=== PATIENT | female | born 1970 ===

== ENCOUNTER 2018-08-06 02:10 | Observation (INO) | payer SELFPAY ==
[2018-08-06] MEDS ORDERED: DiphenhydrAMINE 50 mg/ml Inj IV STA (02:33)
--- NOTE | 2018-08-06 02:39 | ED PDOC ---
HPI: Allergic Reaction Time Seen by Provider: 08/06/18 02:21 Chief Complaint (Nursing): Allergic Reaction Chief Complaint (Provider): allergic reaction History Per: Patient History/Exam Limitations: no limitations Onset/Duration Of Symptoms: Hrs (14) Current Symptoms Are (Timing): Still Present Possible Cause: JACQUIE Inhibitor Home/EMS Treatment: Benadryl Additional Complaint(s): 47 y/o female presents for evaluation of possible allergic reaction x 14 hours. Patient states around 10:00 yesterday morning she noticed mild swelling to upper lip, which got progressively more swollen throughout the day. Patient states she took a Benadryl at 22:30 then went to bed and woke up an hour ago and noticed swelling worsened, and spread up to cheeks and nasal bridge. Patient denies fever, facial pain, difficulty speaking/swallowing, rash, cough, chest pain, shortness of breath, palpitations, abdominal pain, vomiting/diarrhea. Patient states only possible allergen could be waffles she ate for breakfast. Patient also on JACQUIE inhibitor PMD: Dr. De Luna Past Medical History Reviewed: Historical Data, Nursing Documentation, Vital Signs Vital Signs: Last Vital Signs Temp 97.8 F 08/06/18 02:20 Pulse 85 08/06/18 02:20 Resp 17 08/06/18 02:20 BP 149/72 08/06/18 02:20 Pulse Ox 99 08/06/18 02:20 Primary Care Provider: Non [facility] Provider, - Medical History PMH: No Chronic Diseases - Surgical History Other surgeries: liposuction - Family History Family History: States: No Known Family Hx - Living Arrangements Living Arrangements: With Family - Immunization History Hx Tetanus Toxoid Vaccination: No Hx Influenza Vaccination: Yes Hx Pneumococcal Vaccination: No - Home Medications Home Medications: Ambulatory Orders Medication Instructions Recorded Cyclobenzaprine [Flexeril] 10 mg PO HS 07/23/14 Ibuprofen 800 mg PO BID 07/23/14 - Allergies Allergies/Adverse Reactions: Allergies Allergy/AdvReac Type Severity Reaction Status Date / Time No Known Allergies Allergy Verified 08/06/18 02:22 Review of Systems ROS Statement: Except As Marked, All Systems Reviewed And Found Negative Skin: Positive for: Other (swelling) Physical Exam - Reviewed Nursing Documentation Reviewed: Yes Vital Signs Reviewed: Yes - Physical Exam Appears: Positive for: Well, Non-toxic, No Acute Distress Head Exam: Positive for: ATRAUMATIC, NORMAL INSPECTION, NORMOCEPHALIC Skin: Positive for: Normal Color (moderate edema noted to lips, extending upward to inferior orbits, nasal bridge; no erythema, tenderness noted) Eye Exam: Positive for: EOMI, PERRL, Periorbital swelling (infraorbital, bilateral) Cardiovascular/Chest: Positive for: Regular Rate, Rhythm Respiratory: Positive for: Normal Breath Sounds Gastrointestinal/Abdominal: Positive for: Normal Exam Back: Positive for: Normal Inspection Extremity: Positive for: Normal ROM Neurological/Psych: Positive for: Awake, Alert, Oriented (x3) - Laboratory Results Result Diagrams: 08/06/18 03:10 08/06/18 03:10 - ECG O2 Sat by Pulse Oximetry: 99 - Progress ED Course And Treament: -cbc -cmp -IV solumedrol -IV pepcid -IV benadryl 5:00 No improvement of swelling Case discussed with Dr. Licona, hospitalist on-call, for admission for observation Disposition - Clinical Impression Clinical Impression: Angioedema - Patient ED Disposition Is Patient to be Admitted: Yes - Disposition Disposition Time: 04:57 Condition: FAIR
[2018-08-06] MEDS ORDERED: DiphenhydrAMINE 50 mg/ml Inj ONE (02:51)
[2018-08-06 03:23] LABS: BASO % 0.8 % (0.0-2.0); EOS # 0.2 K/uL (0.0-0.7); HEMOGLOBIN 13.1 g/dL (12.0-16.0); LYMPH % 38.5 % (20.0-40.0); MEAN CELL VOLUME 96.6 fl (81.0-99.0); MEAN CORPUSCULAR HEMOGLOBIN 32.9 pg (27.0-31.0); MEAN PLATELET VOLUME 8.2 fl (7.2-11.7); MONO # 0.6 K/uL (0.0-0.8); MONO % 11.3 % (0.0-10.0); NEUT # 2.4 K/uL (1.8-7.0); NEUT % 45.4 % (50.0-75.0); NRBC % 0.2 % (0.0-0.0); RBC 3.97 Mil/uL (3.80-5.20); RED CELL DISTRIBUTION WIDTH 13.5 % (11.5-14.5); WHITE BLOOD COUNT 5.3 K/uL (4.8-10.8)
[2018-08-06 03:30] LABS: ALB/GLOB RATIO 1.4 (1.0-2.1); ALT/SGPT 31 U/L (9-52); AST/SGOT 32 U/L (14-36); BLOOD UREA NITROGEN 16 mg/dl (7-17); CALCIUM 9.1 mg/dL (8.4-10.2); GFR NON-AFRICAN AMERICAN > 60
--- NOTE | 2018-08-06 05:52 | CP.PCM.HP ---
<Julián Abreu - Last Filed: 08/06/18 06:01> History of Present Illness - History of Present Illness History of Present Illness: 47 yo F with pmhx of HTN presents with facial swelling. Pt states approximately 17 hrs prior, she noticed R sided of her upper lip with swelling, which slowly progressed to Left and then maxillary region. 12 hrs after, she took 2 tabs of benadryl, woke up to swelling that progressed periorbitally. Denies SOB, dysphagia, sensation of throat closure, new makeup, new facial products, recent travel, bug bites to face,new foods, cough, sob, n/v. Shes had similar symptoms 8 months ago when started on lisinopril; treated with OTC remedies like benadryl and honey. Pt states symptoms would resolve in 4 days, however, this instance was sustained/worsened. Pt had recent allergy test that showed no specific allergies. she reports allergy to animal dander, however, last contact was 3+ yrs ago. Dr. De Luna pmhx: htn surg: liposuction soc: social etoh; denies: smoking and illicit drugs. lives with Famh: dm/htn meds: reconciled NK (prior) DA Present on Admission - Present on Admission Any Indicators Present on Admission: No History of Uncontrolled Diabetes: No Urinary Catheter: No Review of Systems - Constitutional Constitutional: As Per HPI - EENT Nose/Mouth/Throat: Lip Swelling. absent: Dysphagia, Sore Throat, Throat Swelling, Tongue Swelling - Cardiovascular Cardiovascular: absent: Chest Pain - Respiratory Respiratory: absent: Cough, Dyspnea, Wheezing - Gastrointestinal Gastrointestinal: absent: Constipation, Diarrhea - Genitourinary Genitourinary: absent: Dysuria, Urinary Frequency Past Patient History - Past Social History Smoking Status: Never Smoked Alcohol: Social Drugs: Denies Home Situation {Lives}: With Family - CARDIAC Hx Hypertension: Yes - PSYCHIATRIC Hx Substance Use: No - SURGICAL HISTORY Hx Surgeries: Yes Other/Comment: liposuction Meds Allergies/Adverse Reactions: Allergies Allergy/AdvReac Type Severity Reaction Status Date / Time JACQUIE Inhibitors Allergy ANGIOEDEMA Verified 08/06/18 05:59 Physical Exam - Constitutional Appears: No Acute Distress - Eye Exam Eye Exam: EOMI. absent: Nystagmus, Periorbital swelling, Scleral icterus - ENT Exam ENT Exam: Mucous Membranes Moist, Normal Oropharynx Additional comments: Facial edema at upper lip and maxillary region. - Neck Exam Neck exam: Positive for: Full Rom. Negative for: Tenderness - Respiratory Exam Respiratory Exam: Clear to Auscultation Bilateral, NORMAL BREATHING PATTERN. absent: Wheezes - Cardiovascular Exam Cardiovascular Exam: REGULAR RHYTHM, +S1, +S2 - GI/Abdominal Exam GI & Abdominal Exam: Normal Bowel Sounds, Soft. absent: Tenderness - Extremities Exam Extremities exam: Negative for: calf tenderness - Back Exam Back exam: absent: CVA tenderness (L), CVA tenderness (R) - Neurological Exam Neurological exam: Alert, CN II-XII Intact, Oriented x3 - Psychiatric Exam Psychiatric exam: Normal Affect, Normal Mood Results - Vital Signs Recent Vital Signs: Last Vital Signs Temp 97.8 F 08/06/18 02:20 Pulse 85 08/06/18 02:20 Resp 17 08/06/18 02:20 BP 149/72 08/06/18 02:20 Pulse Ox 99 08/06/18 04:58 - Labs Result Diagrams: 08/06/18 03:10 08/06/18 03:10 Labs: Laboratory Results - last 24 hr 08/06/18 08/06/18 03:10 03:10 WBC 5.3 RBC 3.97 Hgb 13.1 Hct 38.3 MCV 96.6 MCH 32.9 H MCHC 34.0 RDW 13.5 Plt Count 372 MPV 8.2 Neut % (Auto) 45.4 L Lymph % (Auto) 38.5 [place] % (Auto) 11.3 H Eos % (Auto) 4.0 Baso % (Auto) 0.8 Neut # (Auto) 2.4 Lymph # (Auto) 2.0 [place] # (Auto) 0.6 Eos # (Auto) 0.2 Baso # (Auto) 0.0 Sodium 137 Potassium 4.3 Chloride 104 Carbon Dioxide 25 Anion Gap 12 BUN 16 Creatinine 0.9 Est GFR ( Amer) > 60 Est GFR (Non-Af Amer) > 60 Random Glucose 99 Calcium 9.1 Total Bilirubin 0.3 AST 32 ALT 31 Alkaline Phosphatase 66 Total Protein 6.8 Albumin 4.0 Globulin 2.8 Albumin/Globulin Ratio 1.4 Assessment & Plan - Assessment and Plan (Free Text) Assessment: 47 yo F with pmhx of HTN presents with facial swelling. Admitted for angioedema Plan: Angioedema likely 2/2 to lisinopril d/c lisinopril s/p solumedrol and benadry in ER c/w solumedrol 40 mg/q6; benadryl 25 mg q6 monitor for worsening symptoms, throat closure, shortness of breath, nursing swallow eval HTN elevated d/c lisinopril d/t angioedema start metoprolol monitor vitals DVT prophylaxis SCDs Case and plan d/w Dr. Livan Cardenas <Bay Licona - Last Filed: 08/06/18 06:45> Results - Vital Signs Recent Vital Signs: Last Vital Signs Temp 98.6 F 08/06/18 06:14 Pulse 76 08/06/18 06:14 Resp 19 08/06/18 06:14 BP 138/97 H 08/06/18 06:14 Pulse Ox 99 08/06/18 06:14 - Labs Result Diagrams: 08/06/18 03:10 08/06/18 03:10 Labs: Laboratory Results - last 24 hr 08/06/18 08/06/18 03:10 03:10 WBC 5.3 RBC 3.97 Hgb 13.1 Hct 38.3 MCV 96.6 MCH 32.9 H MCHC 34.0 RDW 13.5 Plt Count 372 MPV 8.2 Neut % (Auto) 45.4 L Lymph % (Auto) 38.5 [place] % (Auto) 11.3 H Eos % (Auto) 4.0 Baso % (Auto) 0.8 Neut # (Auto) 2.4 Lymph # (Auto) 2.0 [place] # (Auto) 0.6 Eos # (Auto) 0.2 Baso # (Auto) 0.0 Sodium 137 Potassium 4.3 Chloride 104 Carbon Dioxide 25 Anion Gap 12 BUN 16 Creatinine 0.9 Est GFR ( Amer) > 60 Est GFR (Non-Af Amer) > 60 Random Glucose 99 Calcium 9.1 Total Bilirubin 0.3 AST 32 ALT 31 Alkaline Phosphatase 66 Total Protein 6.8 Albumin 4.0 Globulin 2.8 Albumin/Globulin Ratio 1.4 Attending/Attestation - Attestation I have personally seen and examined this patient.: Yes I have fully participated in the care of the patient.: Yes I have reviewed all pertinent clinical information: Yes Notes (Text): 08/06/18 06:36 I saw, Examined and Discussed this patient with Dr Abreu. I agree with the assessment and plan outlined. This is a 47 years old female taking Lisinopril for HTN who comes with swollen lips, cheeks and periorbital region of 2 days duration. No difficulty to swallow nor to breath. no improvement with treatment in the ED of Solu-medrol and Benadryl. We will continue treatment with Methylprednisone, Pepcid and Benadryl with close attention on respiration. Will treat HTN with Metoprolol Bay Licona MD
[2018-08-06] MEDS ORDERED: Metoprolol Succinate 25 mg XL Tab PO SCH ×2 (06:14→09:00)
[2018-08-06] MEDS ORDERED: methylPREDNISolone 40 MG in Sodium Chloride 0.9% 50 ML IVPB SCH (10:00)
[2018-08-06] MEDS ORDERED: MethylPREDNISolone 40 mg Vial IVP SCH (10:00)
[2018-08-06 15:57] VITALS: BP 132/87; PULSE 81; RESP 18; TEMP 99; O2SAT 97
--- NOTE | 2018-08-06 17:15 | CP.PCM.DIS ---
Provider - Provider Date of Admission: 08/06/18 05:02 Attending physician: Bay Licona Time Spent in preparation of Discharge (in minutes): 30 Diagnosis - Discharge Diagnosis (1) Angioedema Status: Acute Priority: Low (2) Hypertension Status: Chronic Priority: Low Hospital Course - Lab Results Lab Results: Most Recent Lab Values WBC 5.3 K/uL (4.8-10.8) 08/06/18 03:10 RBC 3.97 Mil/uL (3.80-5.20) 08/06/18 03:10 Hgb 13.1 g/dL (12.0-16.0) 08/06/18 03:10 Hct 38.3 % (34.0-47.0) 08/06/18 03:10 MCV 96.6 fl (81.0-99.0) 08/06/18 03:10 MCH 32.9 pg (27.0-31.0) H 08/06/18 03:10 MCHC 34.0 g/dL (33.0-37.0) 08/06/18 03:10 RDW 13.5 % (11.5-14.5) 08/06/18 03:10 Plt Count 372 K/uL (130-400) 08/06/18 03:10 MPV 8.2 fl (7.2-11.7) 08/06/18 03:10 Neut % (Auto) 45.4 % (50.0-75.0) L 08/06/18 03:10 Lymph % (Auto) 38.5 % (20.0-40.0) 08/06/18 03:10 [place] % (Auto) 11.3 % (0.0-10.0) H 08/06/18 03:10 Eos % (Auto) 4.0 % (0.0-4.0) 08/06/18 03:10 Baso % (Auto) 0.8 % (0.0-2.0) 08/06/18 03:10 Neut # (Auto) 2.4 K/uL (1.8-7.0) 08/06/18 03:10 Lymph # (Auto) 2.0 K/uL (1.0-4.3) 08/06/18 03:10 [place] # (Auto) 0.6 K/uL (0.0-0.8) 08/06/18 03:10 Eos # (Auto) 0.2 K/uL (0.0-0.7) 08/06/18 03:10 Baso # (Auto) 0.0 K/uL (0.0-0.2) 08/06/18 03:10 Sodium 137 mmol/l (132-148) 08/06/18 03:10 Potassium 4.3 MMOL/L (3.6-5.0) 08/06/18 03:10 Chloride 104 mmol/L (98-107) 08/06/18 03:10 Carbon Dioxide 25 mmol/L (22-30) 08/06/18 03:10 Anion Gap 12 (10-20) 08/06/18 03:10 BUN 16 mg/dl (7-17) 08/06/18 03:10 Creatinine 0.9 mg/dl (0.7-1.2) 08/06/18 03:10 Est GFR ( Amer) > 60 08/06/18 03:10 Est GFR (Non-Af Amer) > 60 08/06/18 03:10 Random Glucose 99 mg/dL (65-105) 08/06/18 03:10 Calcium 9.1 mg/dL (8.4-10.2) 08/06/18 03:10 Total Bilirubin 0.3 mg/dl (0.2-1.3) 08/06/18 03:10 AST 32 U/L (14-36) 08/06/18 03:10 ALT 31 U/L (9-52) 08/06/18 03:10 Alkaline Phosphatase 66 U/L (38-126) 08/06/18 03:10 Total Protein 6.8 G/DL (6.3-8.2) 08/06/18 03:10 Albumin 4.0 g/dL (3.5-5.0) 08/06/18 03:10 Globulin 2.8 gm/dL (2.2-3.9) 08/06/18 03:10 Albumin/Globulin Ratio 1.4 (1.0-2.1) 08/06/18 03:10 - Hospital Course Hospital Course: 47 yr old F with PMHx of hypertension admitted for moderate to severe angioedema or the face and lips suspected to be due to her home medication hydrochlorothiazide/lisinopril. Patient symptoms improved after treatment with IV steroids, IV benadryl and IV famotidine. Patient was started on a new antibypertensive medication (metoprolol succinate 25mg PO QD) and blood pressure remained stable. Patients angioedema improved, she had no respiratory distress, she was able to tolerate PO diet. Patient is stable for discharge with instructions to discontinue hydrochlorothiazide/lisinopril, continue metoprolol succinate 25mg PO QD, follow up with PMD within 1 week and take PO benadryl and prednisone as prescribed. - Date & Time of H&P Date of H&P: 08/06/18 Time of H&P: 05:51 Discharge Exam - Head Exam Head Exam: ATRAUMATIC, NORMOCEPHALIC (mild angioedema of bilateral maxillary area) - Eye Exam Eye Exam: EOMI - ENT Exam ENT Exam: Mucous Membranes Moist - Respiratory Exam Respiratory Exam: NORMAL BREATHING PATTERN - Cardiovascular Exam Cardiovascular Exam: REGULAR RHYTHM, +S1, +S2 - GI/Abdominal Exam GI & Abdominal Exam: Normal Bowel Sounds, Soft. absent: Tenderness - Extremities Exam Extremities exam: full ROM - Neurological Exam Neurological exam: Alert, CN II-XII Intact, Oriented x3 - Psychiatric Exam Psychiatric exam: Normal Affect, Normal Mood - Skin Skin Exam: Dry, Normal Color, Warm Discharge Plan - Discharge Medications Prescriptions: DiphenhydrAMINE [Benadryl] 50 mg PO Q8 #9 cap Metoprolol Succinate XL [Toprol XL] 25 mg PO DAILY #30 tab predniSONE [Prednisone] 10 mg PO DAILY #3 tab - Follow Up Plan Condition: FAIR Disposition: HOME/ ROUTINE Instructions: Angioedema (DC) Additional Instructions: -follow up with primary MD 1 week -take medications as prescribed -ED precautions reviewed Referrals: Costa De Luna MD [Family Provider] -
== END 2018-08-06 17:30 | disposition home or self-care (01) ==
LOC: H.ER 02:10 → H.ERHOLD 05:02 → H.MEDSURG1 08:42
PROVIDERS: ADMIT Internal Medicine; ATTEND Internal Medicine
DX: T78.3XXA Angioneurotic edema, initial encounter (principal); I10 Essential (primary) hypertension; E11.9 Type 2 diabetes mellitus without complications
CPT/HCPCS: 80053; 81025; 85025; 96374; 96375; 96376; 99284; G0378; J1200; J2930